=== PATIENT | female | born 1975 | race Caucasian/White ===

== ENCOUNTER 2020-08-17 21:27 | Emergency (ER) | payer SELFPAY ==
[~2020-08-17] VITALS: Ht 172 cm; Wt 80.0 kg
--- NOTE | 2020-08-17 22:21 | ED Psychosocial ---
General Chief Complaint: Detox Stated Complaint: ALCOHOL WITHDRAWLS Nursing Triage Note: Patient states she drinks a 5th of vodka per day. Family presented to the ER demanding detox for the patient. Pt. states she has been drinking for approximately 1 1/2 years. Patient was released from [facility] earlier today and was discharged with [facility] and resources for detox. History of Present Illness Date Seen by Provider: Aug 17, 2020 Time Seen by Provider: 22:14 Initial Comments Patient is a 45-year-old female who presents to the emergency department today with a chief complaint of desiring detox from alcohol. Patient states that she was recently in the hospital at [facility] and discharged today after being diagnosed with possible pneumonia and a urinary tract infection. Patient admits to drinking at least 1/5 of vodka per day. Patient states that she does not have any suicidal or homicidal ideation. She states she is is not currently having auditory or visual hallucinations but while she was in the hospital she thinks that she was seeing things that were not there. Patient denies current illness such as fevers, chills, cough or congestion. She is not having abdominal pain, nausea, vomiting. Patient states that she has had 2 "shots" today to drink. She does appear intoxicated at this time. I did make a call to [facility] in [place] to inquire on whether or not the patient could be a candidate for admission to their facility. They do require a valid state license from [place] as well as if the patient is admitted she must bring all of her home daily medications with her to the facility. The nurse I spoke with said that she will call me back and let me know if it is even a possibility that we can get her transferred over there. All other review of systems reviewed and negative except as stated. Severity: severe Associated Symptoms: ingestion (Alcohol), suicidal ideation Allergies and Home Medications Patient Home Medication List Home Medication List Reviewed: Yes Review of Systems Constitutional: see HPI EENTM: no symptoms reported Respiratory: no symptoms reported Cardiovascular: no symptoms reported Gastrointestinal: no symptoms reported; No nausea, No vomiting Genitourinary: no symptoms reported : No Musculoskeletal: no symptoms reported Skin: no symptoms reported Psychiatric/Neurological: Anxiety, Depressed, Tremors All Other Systems Reviewed Negative Unless Noted: Yes Past Nednvnq-[id number]-Ckdahv Hx Patient Social History Recent Infectious Disease Expo: No Recent Hopitalizations: Yes ([place]-sepsis, UTI 3/26/21) Seasonal Allergies Seasonal Allergies: No Past Medical History Surgeries: Yes (D&C) Section Respiratory: Yes Asthma Cardiac: No Neurological: No Genitourinary: No Gastrointestinal: No Musculoskeletal: No Endocrine: No HEENT: No Cancer: No Psychosocial: No Nursing Suicide Risk Notes: Patient denies suicidal or homicidal intent Integumentary: No Blood Disorders: No Physical Exam Vital Signs - First Documented 08/17/20 22:02 Temp 36.2 Pulse 100 Resp 16 B/P (MAP) 113/80 (91) Pulse Ox 99 O2 Delivery Room Air Capillary Refill : Less Than 3 Seconds Height, Weight, BMI Height: '" Weight: lbs. oz. kg; 27.00 BMI Method: General Appearance: WD/WN, no apparent distress HEENT: PERRL/EOMI Neck: full range of motion, supple Respiratory: lungs clear, normal breath sounds, no respiratory distress Cardiovascular: regular rate, rhythm Gastrointestinal: non tender, soft Extremities: normal range of motion, normal inspection Neurologic/Psychiatric: alert, normal mood/affect, oriented x 3 Appearance/Memory: appropriate appearance, appropriate insight, neat Behavior/Eye Contact: cooperative, good eye contact, normal speech Thoughts/Hallucinations: normal thought pattern, no apparent hallucination Skin: normal color, warm/dry Progress/Results/Core Measures Results/Orders Vital Signs/I&O 08/17/20 22:02 Temp 36.2 Pulse 100 Resp 16 B/P (MAP) 113/80 (91) Pulse Ox 99 O2 Delivery Room Air Blood Pressure Mean: 91 Progress Progress Note : Time: 22:58 Progress Note I had a long discussion with [facility]. They would prefer the patient return to [facility] for reevaluation and possible placement at [facility]. Before I was able to talk to the patient's sister about this the patient eloped from the department. She did not receive discharge instructions and I was unable to speak to the patient's sister prior to her leaving. Departure Impression Primary Impression: Alcohol abuse Disposition: AGAINST MEDICAL ADVICE Condition: Against Medical Advice Departure-Patient Inst. Referrals: NO,LOCAL PHYSICIAN (PCP/Family) Primary Care Physician VINCENT CAMPOS MD Aug 17, 2020 22:21
[2020-08-17 23:06] VITALS: BP 113/80
== END 2020-08-17 23:07 | disposition left against medical advice (07) ==
LOC: ER 21:30
DX: F10.10 Alcohol abuse, uncomplicated (principal)
CPT/HCPCS: 99283